=== PATIENT | male | born 1990 | race Caucasian/White ===

== ENCOUNTER 2016-05-30 10:24 | Emergency (ER) | payer OTHER, MEDICARE ==
[~2016-05-30] VITALS: Ht 160 cm; Wt 77.1 kg
[~2016-05-30 10:24] MED LIST: ABILIFY20 MG PO; ANTIFUNGAL30 G1 TOP; ATIVAN1 MG PO; BENZTROPINE MESY1 M1 PO; CITALOPRAM HBR20 MG PO; CLONAZEPAM0.5 MG PO; CLONAZEPAM1 MG PO; CLOTRIMAZOLE TOP; CYCLOBENZAPRINE10 M2 PO; DIFLUCAN200 M1 PO; ERYTHROMYCIN1 GM OPH; FLEXERIL10 MG PO; GABAPENTIN300 M2 PO; IBUPROFEN600 M1 PO; INVEGA SUS234 MG/1.5 IM; KLONOPIN0.5 M1 PO; LAMICTAL100 M2 PO; LAMOTRIGINE200 MG PO; MIRTAZAPINE7.5 M1 PO; MOTRIN 600 MG600 MG PO; PANTOPRAZOLE SO40 MG PO; PAROXETINE HCL20 M1 PO; PEPCID20 M1 PO; PERCOCET 5-3251 EACH PO; PRILOSEC OTC20 MG PO; QUETIAPINE FUM300 MG PO; QUETIAPINE FUMA50 M1 PO; RANITIDINE HYD300 MG PO; TRAMADOL HCL50 M1 PO; TRIHEXYPHENIDYL2 M1; TRIHEXYPHENIDYL5 M1 PO; VICODIN 5-3001 EACH PO
--- NOTE | 2016-05-30 11:06 | RADIOLOGY REPORT ---
EXAMINATION: XR FINGER, RIGHT CLINICAL INFORMATION: Smashed fifth digit between 2 pieces of metal COMPARISON: None TECHNIQUE: Three views of the right fifth finger. FINDINGS: Osseous alignment appears anatomic. No definite acute findings are seen. There is slight contour deformity of the tip of the fifth distal phalanx, more suggestive of a chronic finding rather than acute fracture. Soft tissue swelling is suspected distally. IMPRESSION: Slight contour deformity of the tip of the distal phalanx, more suggestive of a chronic finding rather than acute fracture.
[2016-05-30] MEDS ORDERED: PROZAC10 M1 PO (11:10)
[2016-05-30] MEDS ORDERED: CLOZARIL100 M1 PO (11:11)
[2016-05-30] MEDS ORDERED: BUSPIRONE HCL10 M1 PO (11:11)
--- NOTE | 2016-05-30 11:37 | ED HAND/WRIST INJURY COMPLAINT ---
History of Present Illness General Chief Complaint: Hand or Wrist Injury Stated Complaint: RT FINGER INJURY Source: patient, old records Exam Limitations: no limitations Vital Signs & Intake/Output Vital Signs & Intake/Output Vital Signs Date Time Temp Pulse Resp B/P Pulse O2 O2 Flow FiO2 Ox Delivery Rate 05/30 1209 97.8 92 18 132/77 98 Room Air 05/30 1034 97.8 100 18 139/84 99 Room Air Allergies Coded Allergies: fluphenazine (From PROLIXIN) (ANAPHYLAXIS 11/06/15) trazodone (ANAPHYLAXIS 11/06/15) haloperidol (From Haldol) (Intermediate, ARM MUSCLE STIFFNESS 11/06/15) Reconcile Medications Benztropine Mesylate 1 MG TABLET 1 TAB PO BID MENTAL HEALTH (Reported) Buspirone HCl 10 MG TABLET 1 TAB PO BID MENTAL HEALTH (Reported) Citalopram Hydrobromide (Citalopram HBr) 20 MG TABLET 1 TAB PO DAILY MENTAL HEALTH (Reported) Clindamycin HCl 300 MG CAPSULE 1 CAP PO TID ppx Clonazepam (Klonopin) 0.5 MG TABLET 1 TAB PO BID ANXIETY (Reported) Clozapine (Clozaril) 100 MG TABLET 3.5 TAB PO QPM MENTAL HEALTH (Reported) Famotidine (Pepcid) 20 MG TABLET 1 TAB PO BID ACID REFLUX (Reported) Fluoxetine HCl (Prozac) 10 MG CAPSULE 3 CAP PO QAM MENTAL HEALTH (Reported) Gabapentin 300 MG CAPSULE 1 CAP PO DAILY MENTAL HEALTH (Reported) Ibuprofen 800 MG TABLET 1 TAB PO TID PRN pain Lamotrigine (Lamictal) 100 MG TABLET 1 TAB PO BID MENTAL HEALTH (Reported) Mirtazapine 7.5 MG TABLET 1 TAB PO QPM SLEEP (Reported) Oxycodone HCl/Acetaminophen (Percocet 5-325 MG Tablet) 5 MG-325 MG TABLET 1 TAB PO BID PRN breakthrough pain Paliperidone Palmitate (Invega Sustenna) 234 MG/1.5 ML SYRINGE 1 SYR IM Q30D MENTAL HEALTH (Reported) Paroxetine HCl 20 MG TABLET 1 TAB PO DAILY MENTAL HEALTH (Reported) Quetiapine Fumarate 50 MG TABLET 1 TAB PO QPM MENTAL HEALTH (Reported) Triage Note: PT STATES THAT HE SMASHED HIS R PINKY FINGER BETWEEN 2 PIECES OF HEAVY METAL. LAC NOTED AND STATES THAT IT IS THROBBING. MEDICATED AT TRIAGE Triage Nurses Notes Reviewed? yes Occurred: just prior to arrival Duration: hour(s): (1), constant Timing: recent history Injury Environment: home Severity: moderate Severity Numbers: 6 Pain/Injury Location: Right: 5th finger. Context: laceration Method of Injury: direct blow Modifying Factors: Worsens With: other (PALPATION). Associated Symptoms: swelling HPI: This is a 26-year-old male who presents to emergency room status post sustaining injury to the right fifth finger just prior to arrival when he crushed it between 2 pieces of metal that he was throwing out. He is left-hand dominant he is unsure of his last tetanus. He is not complaining of aggravating throbbing pulsating pain to the distal right finger. He has not taken anything for his symptoms was medicated with Motrin in triage. She denies any numbness or tingling, he denies any other finger, or hand pain. There are no other modifying factors or associated symptoms otherwise. HEENT is aching throbbing nonradiating Past History Travel History Traveled to [place] past 21 day No Medical History Any Pertinent Medical History? 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 No Review of Systems Review of Systems Constitutional: Reports: see HPI. All Other Systems: Reviewed and Negative Comments Review of systems: See HPI, All other systems negative. Constitutional, no chills no fever, no malaise HEENT: No visual changes no sore throat no congestion Cardiovascular: No chest pain , no palpitation Skin, no rashes, no change in skin Respiratory: no cough no sputum GI: No nausea no vomiting, no diarrhea, : No dysuria Muscle skeletal: No joint pain, no back pain, no neck pain, Neurologic: No numbness no headache Psych: No stress Heme/endocrine: No bruising no bleeding Immunology: No lymphadenopathy Physical Exam Physical Exam General Appearance: well developed/nourished, no apparent distress, alert, awake Hand Left: normal inspection, normal range of motion Hand Right: swelling, tender, 5th finger Comments: Well-developed well-nourished patient in no apparent distress. HEENT: Atraumatic, extraocular motion intact Neck: Supple, FROM Back: FROM Cardiovascular: Regular rate and rhythms no murmurs Respiratory: No respiratory distress. Patient speaking in full complete sentences. Shoulder: Atraumatic/Stable. FROM . Elbow: Atraumatic/stable. FROM. No laxity Upper arm/Forearm: Atraumatic. Nontender. No edema, 5 out of 5 planer feeder strength noted to bilateral upper extremities Hand/Wrist: There is a 1 cm superficial linear laceration over the lateral aspect of the right fifth finger with positive swelling and tenderness to palpation, Refills within normal limits. Sensation, FROM both active and passive of the finger the rest of the hand and all other fingers are atraumatic, there is no subungal hematoma Pulses: Normal/equal radial pulses bilaterally. Brisk cap refill Lower Extremities: full range of motion Neuro: Alert and oriented x3 Skin: Warm & dry;No appreciable rash on exposed skin Psych: Mood affect normal, normal memory normal judgment. Progress Differential Diagnosis: contusion, compartment syndrome, dislocation, fracture, sprain Plan of Care: Current Medications Sig/Job Start time Last Medication Dose Stop Time Status Admin Acetaminophen/ 1 TAB ONCE ONE 05/30 1145 CAN Hydrocodone Bitart 05/30 1146 (Vicodin) X-ray was ordered from triage. Discussed with patient his x-ray results the wound was thoroughly irrigated with normal saline Betadine peroxide. Dermabond was applied and splint was applied I discussed with him his x-ray results and further orders care prescription for clindamycin pain medication was provided advised close follow-up with his primary care physician, a however if he develops redness warm swelling discharge fever chills numbness or tingling I advised that he return immediately. I answered all his questions he feels comfortable this plan cleared for discharge (GAIL GONZALEZ,ARTHUR) Diagnostic Imaging: Viewed by Me: Radiology Read. Discussed w/RAD: Radiology Read. Radiology Impression: PATIENT: JORDEN HERNANDEZ PRESENT AGE: 26 PATIENT ACCOUNT NO: [id number] : 91 LOCATION: [facility] ORDERING PHYSICIAN: DANA GOFF DO SERVICE DATE: 05/30/16 EXAM TYPE: RAD - XRY-FINGERS, RIGHT EXAMINATION: XR FINGER, RIGHT CLINICAL INFORMATION: Smashed fifth digit between 2 pieces of metal COMPARISON: None TECHNIQUE: Three views of the right fifth finger. FINDINGS: Osseous alignment appears anatomic. No definite acute findings are seen. There is slight contour deformity of the tip of the fifth distal phalanx, more suggestive of a chronic finding rather than acute fracture. Soft tissue swelling is suspected distally. IMPRESSION: Slight contour deformity of the tip of the distal phalanx, more suggestive of a chronic finding rather than acute fracture. DICTATED BY: JERED LAI MD DATE/TIME DICTATED:05/30/161057 INVERTEBRATE PALEONTOLOGIST:SUSANNA DATE/TIME TRANSCRIBED:1057 CONFIDENTIAL, DO NOT COPY WITHOUT APPROPRIATE AUTHORIZATION. < Electronically signed in Other Vendor System> SIGNED BY: JERED LAI MD 05/30/16 1106 Departure Departure Time of Disposition: 1151 Disposition: HOME OR SELF CARE Condition: Stable Clinical Impression Primary Impression: Finger fracture, right Secondary Impressions: Finger laceration Referrals: PHUONG MCCOLLUM APRN (PCP/Family) Additional Instructions: Percocet for breakthrough pain, ibuprofen 800 mg every 8 hours, use caution as the Percocet is a narcotic and will make you drowsy no driving or drinking alcohol while taking. Clindamycin for wound prophylaxis. Finger splint as discussed as discussed observe for any concerns or signs of infection: Redness warmth swelling discharge fever chills or any other concerns. these prescriptions were sent to the [facility] Departure Forms: Customer Survey General Discharge Information Prescriptions: Current Visit Scripts Clindamycin HCl 1 CAP PO TID #21 CAP Ibuprofen 1 TAB PO TID PRN pain #30 TAB Oxycodone HCl/Acetaminophen (Percocet 5-325 MG Tablet) 1 TAB PO BID PRN breakthrough pain #10 TAB Procedures Laceration/Wound Repair Laceration/Wound Repair: Wound Location: upper extremity Wound's Depth, Shape: linear Wound Length (cm): 1 Wound Explored: clean, no foreign body removed, irrigated extensively Irrigated w/ Saline (ccs): 200 Betadine Prep? Yes Wound Repaired With: Dermabond Sterile Dressing Applied: Yes Splint Applied? Yes By Who? by me Tetanus Status: up to date
[2016-05-30] MEDS ORDERED: CLINDAMYCIN HC300 M1 PO (11:52)
[2016-05-30] MEDS ORDERED: IBUPROFEN800 M1 PO (11:52)
[2016-05-30] MEDS ORDERED: PERCOCET 5-3251 EACH PO (11:52)
[2016-05-30 12:09] VITALS: BP 132/77
== END 2016-05-30 12:14 ==
LOC: ERH 10:24
DX: S62.636A Displaced fracture of distal phalanx of right little finger, initial encounter for closed fracture (principal); S61.216A Laceration without foreign body of right little finger without damage to nail, initial encounter; W23.0XXA Caught, crushed, jammed, or pinched between moving objects, initial encounter
CPT/HCPCS: 73140-RT; 90471; 90714

== ENCOUNTER 2016-08-02 08:53 | Emergency (ER) | payer OTHER, MEDICARE ==
[~2016-08-02] VITALS: Ht 160 cm; Wt 81.6 kg
[~2016-08-02 08:53] MED LIST changes: +BUSPIRONE HCL10 M1 PO; +CLINDAMYCIN HC300 M1 PO; +CLOZARIL100 M1 PO; +IBUPROFEN800 M1 PO; +PROZAC10 M1 PO
--- NOTE | 2016-08-02 09:10 | ED GI/GU/ABDOMINAL COMPLAINT ---
History of Present Illness General Chief Complaint: Nausea, Vomiting, Diarrhea Stated Complaint: VOMITING X 2 HOURS Source: patient Exam Limitations: no limitations Vital Signs & Intake/Output Vital Signs & Intake/Output Vital Signs Date Time Temp Pulse Resp B/P B/P Pulse O2 O2 Flow FiO2 Mean Ox Delivery Rate 08/02 1440 99.4 75 15 111/67 98 Room Air Room Air 08/02 1248 97.8 80 16 110/72 98 Room Air 08/02 1025 96.9 78 15 113/64 98 Room Air Room Air 08/02 0930 Room Air Room Air 08/02 0859 96.6 93 16 127/82 97 Room Air Allergies Coded Allergies: fluphenazine (From PROLIXIN) (ANAPHYLAXIS 11/06/15) trazodone (ANAPHYLAXIS 11/06/15) haloperidol (From Haldol) (Intermediate, ARM MUSCLE STIFFNESS 11/06/15) Reconcile Medications Benztropine Mesylate 1 MG TABLET 1 TAB PO BID MENTAL HEALTH (Reported) Buspirone HCl 10 MG TABLET 1 TAB PO BID MENTAL HEALTH (Reported) Citalopram Hydrobromide (Citalopram HBr) 20 MG TABLET 1 TAB PO DAILY MENTAL HEALTH (Reported) Clonazepam (Klonopin) 0.5 MG TABLET 1 TAB PO BID ANXIETY (Reported) Clozapine (Clozaril) 100 MG TABLET 3.5 TAB PO QPM MENTAL HEALTH (Reported) Dicyclomine Hydrochloride (Bentyl) 10 MG CAPSULE 1-2 CAP PO TID pain Famotidine (Pepcid) 20 MG TABLET 1 TAB PO BID ACID REFLUX (Reported) Fluoxetine HCl (Prozac) 10 MG CAPSULE 3 CAP PO QAM MENTAL HEALTH (Reported) Gabapentin 300 MG CAPSULE 1 CAP PO DAILY MENTAL HEALTH (Reported) Lamotrigine (Lamictal) 100 MG TABLET 1 TAB PO BID MENTAL HEALTH (Reported) Mirtazapine 7.5 MG TABLET 1 TAB PO QPM SLEEP (Reported) Ondansetron (Zofran Odt) 4 MG TAB.RAPDIS 1 TAB SL TID nausea Paliperidone Palmitate (Invega Sustenna) 234 MG/1.5 ML SYRINGE 1 SYR IM Q30D MENTAL HEALTH (Reported) Paroxetine HCl 20 MG TABLET 1 TAB PO DAILY MENTAL HEALTH (Reported) Quetiapine Fumarate 50 MG TABLET 1 TAB PO QPM MENTAL HEALTH (Reported) Triage Note: 26 Y/O MALE C/O DIFFUSE ABDOMINAL PAIN AND N/V/D SINCE LAST NIGHT. AFEBRILE. Triage Nurses Notes Reviewed? yes Onset: Abrupt Duration: hour(s):, constant, continues in ED Timing: recent history Quality/Severity: moderate, sharpness, severe Location: generalized abdomen Radiation: no radiation No Modifying Factors: none HPI: 26-year-old male comes into emergency room for further evaluation of nausea vomiting abdominal pain and diarrhea this been going on for the past 24 hours getting progressively worse. Patient reports severe pain in his abdomen. Nothing seems to make the symptoms better or worse. Patient cannot keep any thing down at home. History of previous inguinal hernia surgery when he was a child. Denies any other associated symptoms. Past History Travel History Traveled to [place] past 21 day No Medical History Any Pertinent Medical History? 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 No Review of Systems Review of Systems Constitutional: Reports: no symptoms. EENTM: Reports: no symptoms. Respiratory: Reports: no symptoms. Cardiovascular: Reports: no symptoms. GI: Reports: see HPI. Genitourinary: Reports: no symptoms. Musculoskeletal: Reports: see HPI. Skin: Reports: no symptoms. Neurological/Psychological: Reports: no symptoms. Hematologic/Endocrine: Reports: no symptoms. Immunologic/Allergic: Reports: no symptoms. All Other Systems: Reviewed and Negative Physical Exam Physical Exam General Appearance: well developed/nourished, alert, awake, mild distress Head: atraumatic, normal appearance Eyes: Bilateral: normal appearance, EOMI. Ears, Nose, Throat, Mouth: hearing grossly normal, moist mucous membrane Neck: normal inspection, full range of motion Respiratory: normal breath sounds, no respiratory distress Cardiovascular: regular rate/rhythm Gastrointestinal: soft Back: normal inspection, normal range of motion Extremities: normal range of motion Neurologic/Psych: awake, alert, oriented x 3, normal gait, normal mood/affect Skin: intact, normal color Core Measures ACS in differential dx? No Severe Sepsis Present: No Septic Shock Present: No Progress Differential Diagnosis: appendicitis, biliary colic, cholecystitis, diverticulitis, gastritis, hepatitis, hernia, ischemic bowel, inflamm bowel dis, pancreatitis, peptic ulcer, PUD/GERD, perforated viscous, pyelonephritis, SBO, STD, ureterolithiasis, urinary retention, urethritis, UTI/pyelo Plan of Care: Orders Procedure Date/time Status Clear Liquid Diet 08/02 D Active URINALYSIS 08/02 909 Complete LIPASE 08/02 909 Complete COMPREHENSIVE METABOLIC PANEL 08/02 909 Complete CBC WITHOUT DIFFERENTIAL 08/02 909 Complete AMYLASE 08/02 909 Complete Laboratory Tests 08/02/16 1028: Urine Color YEL, Urine Clarity CLEAR, Urine pH 6.5, Ur Specific [place] <= 1.005 , Urine Protein NEG, Urine Ketones NEG, Urine Nitrite NEG, Urine Bilirubin NEG, Urine Urobilinogen 0.2, Ur Leukocyte Esterase NEG, Ur Microscopic EXAM NOT REQUIRED, Urine Hemoglobin NEG, Urine Glucose NEG 08/02/16 0917: Anion Gap 12, Estimated GFR > 60, BUN/Creatinine Ratio 16.7, Glucose 105 H, Calcium 9.9, Total Bilirubin 0.4, AST 22, ALT 51, Alkaline Phosphatase 75, Total Protein 7.5, Albumin 4.6, Globulin 2.9, Albumin/Globulin Ratio 1.6, Amylase 61, Lipase 33, CBC w Diff MAN DIFF ORDERED, RBC 5.10, MCV 86.7, MCH 29.1, RDW 16.0 H, MPV 9.2, Gran % 84.2 H, Lymphocytes % 9.1 L, Monocytes % 5.0, Eosinophils % 1.5, Basophils % 0.2, Absolute Granulocytes 11.4 H, Absolute Lymphocytes 1.2, Absolute Monocytes 0.7 H, Absolute Eosinophils 0.2, Absolute Basophils 0, Platelet Estimate ADEQUATE, Normocytic RBCs VERIFIED, Normochromic RBCs VERIFIED , PUBS MCHC 33.5 Diagnostic Imaging: Viewed by Me: CT Scan. Discussed w/RAD: CT Scan. Radiology Impression: SERVICE DATE: 08/02/16 EXAM TYPE: CAT - CT ABD & PELVIS W IV CONTRAST EXAMINATION: CT ABDOMEN AND PELVIS WITH CONTRAST CLINICAL INFORMATION: Abdominal pain with vomiting. COMPARISON: 11/06/2015. TECHNIQUE: Multidetector volumetric imaging was performed of the abdomen and pelvis before and after the IV administration of 95 mL of Optiray 320 intravenous contrast. No adverse contrast reaction reported. Sagittal and coronal reformatted images were obtained on the technologist's workstation. DLP: 417 mGy-cm FINDINGS: Lung bases are clear. There are multiple fluid and air-filled loops of distended small bowel loops measuring up to 3.5 cm in cross-section with a clear transition zone identified on images 55 through 60 series 2 in the mid to distal ileum in the mid to left lower quadrant. No underlying mass is identified in this region, there is no evidence of a mesenteric twist to suggest a volvulus, no intussusception. Differential includes an internal hernia versus adhesion. There are no associated inflammatory changes or intraperitoneal free fluid. The more distal ileum and colon are collapsed. The majority of the jejunum, duodenum and stomach are also fairly collapsed. Appendix is normal-appearing. Liver, spleen, pancreas, gallbladder, kidneys and adrenal glands appear unremarkable. Urinary bladder and prostate appear unremarkable. There are multiple small retroperitoneal lymph nodes most notably just caudal to the head of the pancreas. No pathologically enlarged lymph nodes are identified by size criteria. The aorta and its branches appear widely patent without aneurysm. Anterior abdominal wall demonstrates a small periumbilical hernia containing only mesenteric fat, otherwise unremarkable. Osseous structures unremarkable. IMPRESSION: 1. Findings are consistent with early or partial low-grade small bowel obstruction with an ileal transitional zone as noted above. 2. Otherwise largely unremarkable examination. DICTATED BY: SIRI SHELLEY MD DATE/TIME DICTATED:08/02/161031 LIGHTING ENGINEERING TECHNICIAN:SUSANNA DATE/TIME TRANSCRIBED:1031 Initial ED EKG: none Departure Departure Disposition: HOME OR SELF CARE Condition: Stable Clinical Impression Primary Impression: Vomiting and diarrhea Referrals: PHUONG MCCOLLUM APRN (PCP/Family) Additional Instructions: Take Bentyl and Zofran ODT as prescribed. Follow-up with primary care doctor. Return if any other concerns worsening symptoms. Please go over all results of today's visit with your primary care doctor. Contact your primary care doctor to let them know you were here in the emergency room. There may be nonspecific findings which may not be related to your visit today here in the emergency room but may require further evaluation and chronic monitoring by your primary care doctor. If you had a laceration today the chance of foreign body always remains. You should follow-up with your primary care doctor for recheck in 3-5 days for a wound check. If you had an x-ray done there is a chance that a fracture could have been missed on initial read and you should follow-up with your primary care doctor for repeat x-rays if symptoms persist. If your blood pressure was elevated here in the emergency room please have rechecked by her primary care doctor within the next 48 hours by your primary care doctor. If you were prescribed a narcotic here in the emergency room or any type of controlled substances you're not allowed to drive while taking this medication or operate any type of heavy machinery. Narcotics can make you feel lightheaded dizziness nausea and can cause constipation. You may need to fern picker a stool softener. Thank you for choosing [facility] emergency room. Please return to the emergency room immediately if you have any other concerns worsening of symptoms. Departure Forms: Customer Survey General Discharge Information Prescriptions: Current Visit Scripts Dicyclomine Hydrochloride (Bentyl) 1-2 CAP PO TID #30 CAP Ondansetron (Zofran Odt) 1 TAB SL TID #10 TAB Comments 08/02/2016 3:19:12 PM Patient was seen and evaluated by surgery. He was cleared to go home. Patient feels better. Patient was keeping oral liquids down. Patient has been passing gas. Low suspicion for obstruction. Patient understands and agrees with plan of care.
[2016-08-02 09:27] LABS: ABSOLUTE BASOPHIL COUNT 0 /CUMM (0.0-0.2); BASOPHIL % 0.2 % (0.0-2.0); WHITE BLOOD CELL COUNT 13.5 /CUMM (4.8-10.8)
[2016-08-02 09:29] LABS: ABSOLUTE EOSINOPHIL COUNT 0.2 /CUMM (0.0-0.7); ABSOLUTE GRANULOCYTE CT 11.4 /CUMM (1.4-6.5); ABSOLUTE LYMPH COUNT 1.2 /CUMM (1.2-3.4); ABSOLUTE MONOCYTE COUNT 0.7 /CUMM (0.10-0.60); EOSINOPHIL % 1.5 % (0-5); GRANULOCYTE % 84.2 % (42.2-75.2); MEAN CORPUSCULAR HGB 29.1 PG (27.0-31.0); MEAN CORPUSCULAR HGB CONC 33.5 G/DL (33.0-37.0); MEAN CORPUSCULAR VOLUME 86.7 FL (80.0-94.0); MEAN PLATELET VOLUME 9.2 FL (7.4-10.4); PLATELET COUNT 253 /CUMM (130-400)
[2016-08-02 09:30] LABS: HEMATOCRIT 44.2 % (42-52)
--- NOTE | 2016-08-02 12:07 | CT SCAN REPORT ---
EXAMINATION: CT ABDOMEN AND PELVIS WITH CONTRAST CLINICAL INFORMATION: Abdominal pain with vomiting. COMPARISON: 11/06/2015. TECHNIQUE: Multidetector volumetric imaging was performed of the abdomen and pelvis before and after the IV administration of 95 mL of Optiray 320 intravenous contrast. No adverse contrast reaction reported. Sagittal and coronal reformatted images were obtained on the technologist's workstation. DLP: 417 mGy-cm FINDINGS: Lung bases are clear. There are multiple fluid and air-filled loops of distended small bowel loops measuring up to 3.5 cm in cross-section with a clear transition zone identified on images 55 through 60 series 2 in the mid to distal ileum in the mid to left lower quadrant. No underlying mass is identified in this region, there is no evidence of a mesenteric twist to suggest a volvulus, no intussusception. Differential includes an internal hernia versus adhesion. There are no associated inflammatory changes or intraperitoneal free fluid. The more distal ileum and colon are collapsed. The majority of the jejunum, duodenum and stomach are also fairly collapsed. Appendix is normal-appearing. Liver, spleen, pancreas, gallbladder, kidneys and adrenal glands appear unremarkable. Urinary bladder and prostate appear unremarkable. There are multiple small retroperitoneal lymph nodes most notably just caudal to the head of the pancreas. No pathologically enlarged lymph nodes are identified by size criteria. The aorta and its branches appear widely patent without aneurysm. Anterior abdominal wall demonstrates a small periumbilical hernia containing only mesenteric fat, otherwise unremarkable. Osseous structures unremarkable. IMPRESSION: 1. Findings are consistent with early or partial low-grade small bowel obstruction with an ileal transitional zone as noted above. 2. Otherwise largely unremarkable examination.
[2016-08-02] MEDS ORDERED: BENTYL10 M1 PO (14:39)
[2016-08-02] MEDS ORDERED: ZOFRAN ODT4 M1 SL (14:39)
[2016-08-02 14:40] VITALS: BP 111/67
--- NOTE | 2016-08-03 17:45 | OP PSYCH INCIDENTAL NOTE ---
OPS Incidental Note Details: On 07/31/16 ANC 6800-submitted to the [facility], value acceptable to dispense clozaril Clozaril (clozapine) 100 mg tablet : Take 3.5 tablet by mouth at bedtime Disp. 49 NR (last: 08/03/2016 ) by SILVERIO started on: 07/17/2016 stop on: 08/17/2016 [id number] [place] [id number] (Voice)
== END 2016-08-02 14:55 ==
LOC: ERH 08:53
PROVIDERS: Physician Assistant Medical
DX: R11.2 Nausea with vomiting, unspecified (principal); R10.84 Generalized abdominal pain
CPT/HCPCS: 74177; 81003; 96361; 96374; 96375; 96376; J2405

== ENCOUNTER 2016-09-14 13:57 | Emergency (ER) | payer OTHER, MEDICARE ==
[~2016-09-14] VITALS: Ht 160 cm; Wt 81.6 kg
[~2016-09-14 13:57] MED LIST changes: +BENTYL10 M1 PO; +ZOFRAN ODT4 M1 SL
[2016-09-14 14:04] VITALS: BP 124/88
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
--- NOTE | 2016-09-14 14:46 | RADIOLOGY REPORT ---
EXAMINATION: XR LUMBOSACRAL SPINE CLINICAL INFORMATION: 26-year-old man with low right-sided back pain. COMPARISON: 11/23/2015 radiographs TECHNIQUE: 4 views of the lumbar spine were obtained. FINDINGS: There are hypoplastic ribs at T12 and 5 additional nonrib-bearing lumbar type vertebral bodies. On the lateral film, there is mild anterior wedging of T11 that is unchanged and presumably degenerative. Remaining vertebral bodies are normal in height. Alignment is anatomic. Mild degenerative endplate contour changes are seen at most levels. There is moderate loss of normal disc space at L5-S1 along with mild to moderate facet arthrosis. IMPRESSION: No radiographic evidence of acute fracture or traumatic subluxation. Mild multilevel spondylosis is approximately stable.
[2016-09-14] MEDS ORDERED: NAPROSYN500 M1 PO (14:54)
[2016-09-14] MEDS ORDERED: CYCLOBENZAPRINE10 M1 PO (14:54)
== END 2016-09-14 15:14 ==
LOC: ERH 13:57
DX: S39.012A Strain of muscle, fascia and tendon of lower back, initial encounter (principal)
CPT/HCPCS: 72110